=== PATIENT | female | born 1980 | race Two or more races ===

== ENCOUNTER 2025-06-11 12:13 | Emergency (ER) | payer OTHER ==
[~2025-06-11] VITALS: Ht 162.6 cm; Wt 77.1 kg
[2025-06-11 12:34] VITALS: TEMP 98.3
[2025-06-11] MEDS ORDERED: ACETAMINOPHEN ES 500 MG TABLET ONE (12:49)
[2025-06-11] MEDS: ACETAMINOPHEN ES 500 MG TABLET PO ONE (12:52)
[2025-06-11 13:49] VITALS: BP 116/85; O2SAT 99
== END 2025-06-11 13:48 | disposition home or self-care (01) ==
LOC: ER 12:23
DX: I10 Essential (primary) hypertension (principal); R51.9 Headache, unspecified; R11.0 Nausea
CPT/HCPCS: 70450-TC; 84703-TC